=== PATIENT | female | born 1955 | race Caucasian/White ===

== ENCOUNTER → 2017-01-29 | Outpatient (CLI) | payer OTHER ==
[~2017-01-29] MED LIST: AEROSOL THERAPY1 DEV IH; ALBUTEROL2.5 MG/NEB INH; AUGMENTIN1 TA2 PO; AVPAK AZITHROM250 MG PO; DUEXIS 26.6 MG-1 TAB PO; FLONASE 50 MCG16 GM; HUMIRA10 MG/0.2 SC; HYDROCODONE-APA1 TA1 PO; KEFLEX 500MG.500 MG PO; LEVOTHYROXINE0.05 MG PO; LEXAPRO 10 MG T10 MG PO; LEXAPRO 20 MG T20 MG PO; MEDROL 4MG. DOSE4 MG PO; METAMUCIL3.4 GM/DOS PO; MIRALAX(PO17 GM/1 PA PO; MULTI VITAMINS1 TA1 PO; NOMEDS; PREDNISONE 10MG10 MG PO; PROBIOTICA100 MILLIO PO; SINGULAIR 10 MG10 MG PO; [UNRECOGNIZED DRUG - OTHER] SL
[2017-01-29 15:37] LABS: HEMOGLOBIN 12.5 g/dL (12.2-16.2); LYMPH # 1.4 K/mm3 (0.7-4.5); LYMPH % 28.1 % (10-50.0)
[2017-01-29 17:38] LABS: BUN 20 mg/dL (7-18)
[2017-01-29 17:39] LABS: GFR (ESTIMATED) 85 ML/MIN (59-)
[2017-01-31 12:36] LABS: HBsAg Screen Negative (Negative); Hep B Core Ab, IgM Negative (Negative); Hep B Core Ab, Tot Negative (Negative); Hep B Surface Ab, Qual Non Reactive (.)
== END ==
LOC: LAB 15:09
PROVIDERS: Nurse Practitioner Acute Care
DX: L40.50 Arthropathic psoriasis, unspecified (principal); Z51.81 Encounter for therapeutic drug level monitoring; Z79.1 Long term (current) use of non-steroidal anti-inflammatories (NSAID)

== ENCOUNTER → 2017-01-30 | Outpatient (CLI) | payer OTHER ==
--- NOTE | 2017-02-01 13:14 | RADIOLOGY REPORT PS360 ---
MRI-ABD W/WO HISTORY: HEPATIC DISEASE follow-up right lobe liver lesion. Bloating. Constipation. Diarrhea previous bowel obstruction. Patient Age: 61 years: Female Ordering Physician: KIKA BONDS TECHNIQUE: Multiplanar multisequence imaging abdomen pre and postcontrast. Sequential postcontrast images arterial, venous and delayed ProHance 13 mild COMPARISON :Previous MRI abdomen May 2015, March [address] abdomen 03/09/2015 and ultrasound right upper quadrant 03/10/2015. FINDINGS The multiple prior studies are very helpful in this somewhat unusual feature at liver. There is decreased size of the prior area increased enhancement. This now very thin rather linear wedge-shaped area extending to the periphery of the right lobe of the liver.. Previously enhancement a more extensive distribution with prominent fanlike area of enhancement.-This now quite thin but with focal persistent generous early arterial enhancement which diminishes on subsequent images. . I favor & suspect 'Transient Hepatic Intensity Difference Lesion'. 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 Since 2014 this area has shown shown further regression of size withretraction & likely scarring here since prior 2014 studies.. Previously the area of enhancement span up to 5 cm AP and now spans ~ 1.9 cm AP but with slightly more pronounced linear enhancement.(Most importantly regression of findings here speak against any underlying mass or significant neoplasm On today's study there is linear enhancement signal extends just anterior to the right hepatic vein here at the superior posterior aspect liver. The latter draining hepatic vein remains normal size but I would note minimal low signal within this vein as it junctions with IVC.-Most likely flow void artifact doubt, significant hepatic vein filling defect or abnormality-more likely laminar flow void . Spleen normal size. Pancreas unremarkable. Gallbladder remains with common duct seem normal diameter. Prominent, increased stool is seen throughout the visualize large bowel to be no prominent stool the transverse colon and proximal descending colon on this abdomen study only study. No retroperitoneal adenopathy. IMPRESSION 1. The previous wedgelike area of early arterial enhancement extending to the periphery the right lobe of liver has decreased in overall size. Appears to be some progressive retraction and scarring in this area. Certainly no evidence of mass effect or mass lesion. However although this area smaller there is still generous early arterial enhancement of this region. Note comments in text. ...I would speculate that this reflects a 'Transient Hepatic Intensity Difference ' Type Lesion. Suspect there may have been a previous branch of the portal vein which was injured or thrombosed, resulting in this increased hepatic arterial flow to this region accounting for this early enhancement pattern. Other minor associated findings in text (Most importantly regression of findings here speak against any underlying mass or significant neoplasm.) 2. Gallbladder remains. No ductal dilatation. Pancreas unremarkable. 3. Large amount of stool are reflecting constipation is seen at the visualized portions of the large bowel
== END ==
LOC: RAD 08:39
DX: K76.9 Liver disease, unspecified (principal)
CPT/HCPCS: A9576

== ENCOUNTER → 2017-03-13 | Outpatient (CLI) | payer OTHER ==
[~2017-03-13] MED LIST changes: +AUGMENTIN1 TA1 PO
--- NOTE | 2017-03-15 17:14 | RADIOLOGY REPORT PS360 ---
DIG MAMM-SCREEN ALISHA W/CAD Ordering Physician: Kiki Arce APRN Patient Age: 61 years Female COMPARISON: November 2013, November 2015 INDICATION: Routine screening 61-year-old. No hormones no new complaints TECHNIQUE: MLO and cc view both breast with CAD review FINDINGS: Lower density breast with minimal fibroglandular elements. No significant change. No dominant mass. No suspicious calcifications. Right breast again stable small area of density upper-outer quadrant stable since 2014 Left breast. Minor wispy density at the superior left breast MLO view appears stable and appears to dissipate on cc view compatible with fibroglandular elements. CAD review highlights no areas of concern either IMPRESSION: Stable bilateral mammogram no new areas concern Low-density breast. Follow-up in one year recommended BI-RADS CATEGORY: 1_Negative RECOMMENDED FOLLOWUP: 12M 12 MONTH FOLLOW-UP (A letter has been sent to the patient regarding results of the study.)
== END ==
LOC: RAD 03-09 11:00
DX: Z12.31 Encounter for screening mammogram for malignant neoplasm of breast (principal)
CPT/HCPCS: G0202

== ENCOUNTER → 2017-03-21 | Outpatient (CLI) | payer OTHER ==
[2017-03-21 18:04] LABS: HEMOGLOBIN 12.3 g/dL (12.2-16.2); LYMPH # 1.7 K/mm3 (0.7-4.5); LYMPH % 26.6 % (10-50.0)
[2017-03-21 18:37] LABS: BUN 20 mg/dL (7-18)
[2017-03-21 18:42] LABS: GFR (ESTIMATED) 73 ML/MIN (59-)
== END ==
LOC: LAB 16:35
PROVIDERS: Internal Medicine
DX: L40.50 Arthropathic psoriasis, unspecified (principal); Z51.81 Encounter for therapeutic drug level monitoring; Z79.1 Long term (current) use of non-steroidal anti-inflammatories (NSAID)

== ENCOUNTER 2017-03-23 13:05 | Emergency (ER) | payer OTHER ==
[~2017-03-23] VITALS: Ht 170.2 cm; Wt 105.2 kg
--- NOTE | 2017-03-23 14:21 | Urgent Treatment Center Report ---
History of Present Issue Date/Time Seen by Provider 03/23/17 1405 Visit Reason Pt arrived:Walked Presenting Problem:PT RECEIVED DOG BITE TO LT HAND AT 1000 Location if Accident: Onset of symptoms date/time:/ or onset unknown for:MEDICAL HX UNKNOWN Have you (or family members/close friends) recently traveled outside the [place]? N If Yes, where/when: Have you had exposure to infectious disease within the past month? TB? Other? Specify: Patient state that her dog has a sore ear and as she was putting on the leash she accidently bumped the ear and the dog turned and bite her causing small laceration on the top of her left hand. States that dog is up to date on his shots and she came in after talking to family doctor and they told her she needed antibiotics and tetnus shot ALLERGIES Coded Allergies: No Known Allergies (03/23/17) Home Medications Active Scripts CEPHALEXIN (Keflex 500MG Capsule) 500 MG PO BID 10 Days Prov: 11/23/16 NEBULIZER (Compact Compressor Nebulizer) 1 UNIT IH ONCE #1 DEV Prov: 07/07/15 ALBUTEROL (Albuterol 0.083% Neb) 2.5 MG INH QID PRN dyspnea #120 NEB Prov: 07/07/15 Montelukast Sodium (Singulair 10MG) 10 MG PO DAILY #30 TAB Prov: 07/07/15 Fluticasone Propionate (Flonase 50 Mcg Nasal [place]) 2 SPRAY NA DAILY #1 BOT Prov: 11/15/16 Reported Medications POLYETHYLENE GLYCOL (Miralax) 17 GM PO DAILY Escitalopram Oxalate (Lexapro 20MG) 20 MG PO DAILY Adalimumab (Humira) 10 MG SC [id number] IBUPROFEN/FAMOTIDINE (Duexis 800-26.6 MG Tablet) 1 TAB PO TID Levothyroxine Sodium (Levothyroxine) (Unknown Dose) PO DAILY History Medical History General CAD? No Angina: No OK: No Hypertension? Yes Hyperlipidemia? No CHF? No DVT? No PE? No COPD? No Asthma? No Anemia? No GERD? Yes Gastric ulcers? No GI Bleed? No Hernia? No Thyroid Problems? Yes Hypothyroidism? Yes CVA? No Seizures? No Diabetes? No Renal Insuffiency? No UTI? No Stones? No BPH? No GB Disease: No Nephritic Syndrome? No Asplenia? No Hepatitis? No Sickle Cell Disease? No Arthritis? Yes Migraines? No Cataracts? No Glaucoma? No MRSA? No HIV? No TB? No Anxiety? No Depression? No Cancer? No Site: N More? Yes Additional hx: C Immunization HX DT/Tetanus 1-4 YRS Flu 2013-FSN Pneumonia Refuses Surgical Hx Previous Surgery?Y C SECTIONX3 HYSTERECTOMY BOWEL RESECTION Family History Family HX Diabetes No CAD Yes Hypertension Yes Hyperlipidemia Yes Cancer Yes TB No Social History Smoking Hx Smoker: Never Smoker Tobacco: No Packs/day N/A Alcohol Alcohol: No Review of Systems All Other Systems Reviewed and Negative Comment Dog bit left hand Physical Exam Vital Signs Vital Signs Date Time Temp Pulse Resp B/P Pulse O2 O2 Flow FiO2 Ox Delivery Rate 03/23 1354 98.1 84 20 146/76 97 General Appearance normal appearance, no apparent distress Respiratory Status Yes: trachea midline, chest symmetrical, non tender chest. No: respiratory distress. Cardiovascular normal exam, regular rate/rhythm Extremities Small laceration on top of left hand Neurologic alert, normal exam, oriented x 3 Medical Decision Making LABS/Meds/Orders Pt receiving controlled substance in ED? No Results/Orders Current Medication Orders Sig/Simona Start time Last Medication Dose Route Stop Time Status Admin Tetanus/Diphtheria 0.5 ML ONCE ONE 03/23 141 DC Toxoids Adsorbed IM 03/23 141 Progress UTC Progress Notes Comment Wound area cleaned with betadine and hybacleanse Steri strip placed over wound. Wound area approximately 2 cm long edges approxiamated well with steri strips Procedures Laceration/Wound Repair Laceration/Wound Repair Risks/benefits discussed with pt/guardian? Yes Tetanus status not up to date Wound Location hand Wound Length (cm) 2 Wound's Depth, Shape superficial Wound Explored Cleaned well with betadine, hybacleanse and saline Risk of retained FB explained to pt/guardian? No Irrigated w/ Saline (ccs) 20 Wound Prep Betadine, Hibiclens, Saline Wound Debrided none Wound Repaired With Steri-strips Sterile Dressing Applied No Departure Departure Time of Disposition 1414 Disposition DC Home or Self Care(routine) Clinical Impression Primary Impression: Dog bite Qualifiers: Encounter type: initial encounter Qualified Code: W54.0XXA - Bitten by dog, initial encounter Condition STABLE Referrals Emir RILEY,Salty (Family): 3 Days-Call Office if any signs of infection Patient Instructions DI for Dog Bite Additional Instructions Keep area clean and dry Take medication as prescribed FOllow up with family doctor if any signs of infection Return if needed Discharge Counseling Counseled pt/family regarding diagnosis, medications/RX, home care, follow up needs Prescriptions Current Visit Scripts AMOXICILLIN/POTASSIUM CLAV (Augmentin 500-125 Tablet) 1 TAB PO BID #14 TAB at 1421
[2017-03-23 14:28] VITALS: BP 146/76
--- OUTSIDE RECORDS SUMMARY | 2017-03-30 04:54 | External Medical Summary Rpt | CCD ---
Demographics Preferred Language Italian Marital Status Unknown Adventism Affiliation Unknown Race Unknown Ethnic Group Unknown Author Author , PAMELA MILES Address Unknown Phone Immunization No patient found.
--- OUTSIDE RECORDS SUMMARY | 2017-03-30 04:54 | External Medical Summary Rpt ---
Author Author KIERAEMETERIO Kelley, [employer] Address Unknown Phone Unavailable Results Comprehensive metabolic 2000 panel in Serum or Plasma Observa Value Referen Units Interpr Notes Date tion ce etation Range Albumin/G 1.1 - 1.8 No Normal No Mar 21 lobulin informati informati 2016 4:35 [Mass on in on in PM ratio] in source source Serum or data data Plasma Albumin 3.4 - 5.0 gm/dL Normal No Mar 21 [Mass/vol informati 2016 4:35 ume] in on in PM Serum or source Plasma data Alkaline 46 - 116 U/L Normal No Mar 21 phosphata informati 2017 4:35 se on in PM [Enzymati source c data activity/ volume] in Serum or Plasma Bilirubin 0.2 - 1.0 mg/dL Normal No Mar 21 .total informati 2016 4:35 [Mass/vol on in PM ume] in source Serum or data Plasma Urea 7 - 18 mg/dL High No Mar 21 nitrogen informati 2016 4:35 [Mass/vol on in PM ume] in source Serum or data Plasma Calcium 8.5 - mg/dL Normal No Mar 21 [Mass/vol 10.1 informati 2017 4:35 ume] in on in PM Serum or source Plasma data Chloride 98 - 107 mmoL/L Normal No Mar 21 [Moles/vo informati 2016 4:35 lume] in on in PM Serum or source Plasma data Carbon 21.0 - mmoL/L Normal No Mar 4 dioxide, 32.0 informati 2017 4:35 total on in PM [Moles/vo source lume] in data Serum or Plasma Creatinin 0.55 - mg/dL Normal No Mar 4 e 1.02 informati 2017 4:35 [Mass/vol on in PM ume] in source Serum or data Plasma Estimated 59- ML/MIN No REFERENCE Oct 4 informati RANGE: 2017 4:35 glomerula on in >60 PM r source ML/MIN/1. filtratio data 73 SQUARE n rate METERSIf (GF this patient is -A merican, then multiply theresult by 1.210. Globulin 1.3 - 3.2 gm/dL Normal No Mar 21 [Mass/vol informati 2016 4:35 ume] in on in PM Serum source data Glucose 74 - 106 mg/dL Normal No Mar 21 [Mass/vol informati 2016 4:35 ume] in on in PM Serum or source Plasma data Potassium 3.5 - 5.1 mmoL/L Normal No Mar 212016 4:35 [Moles/vo on in PM lume] in source Serum or data Plasma Sodium 136 - 145 mmoL/L Normal No Mar 21 [Moles/vo informati 2016 4:35 lume] in on in PM Serum or source Plasma data Aspartate 15 - 37 U/L Normal No Mar 21 inform2016 4:35 aminotran on in PM sferase source [Enzymati data c activity/ volume] in Serum or Plasma Alanine 12 - 78 U/L Normal No Mar 21 aminotran 2016 4:35 sferase on in PM [Enzymati source c data activity/ volume] in Serum or Plasma Protein 6.4 - 8.2 gm/dL Normal No Mar 21 [Mass/vol informati 2016 4:35 ume] in on in PM Serum or source Plasma data CBC W Auto Differential panel in Blood Observa Value Referen Units Interpr Notes Date tion ce etation Range Basophils 0 - 0.2 K/MM3 Normal No Mar 212016 4:35 [#/volume on in PM ] in source Blood by data Automated count Basophils 0.1 - 2.0 % Normal No Mar 21 inform2016 4:35 leukocyte on in PM s in source Blood by data Automated count Eosinophi 0.0 - 0.4 K/mm3 Normal No Mar 21 ls 2016 4:35 [#/volume on in PM ] in source Blood by data Automated count Eosinophi 0.1 - % Normal No Mar 21 ls/100 12.0 informati 2016 4:35 leukocyte on in PM s in source Blood by data Automated count Granulocy 1.8 - 7.8 K/mm3 Normal No Mar 21 gopi 2016 4:35 [#/volume on in PM ] in source Blood by data Automated count Granulocy 37.0 - % Normal No Mar 21 gopi100 80.0 inform2016 4:35 leukocyte on in PM s in source Blood by data Automated count Hematocri 37.0 - % Normal No Mar 21 t [Volume 47.0 informati 2017 4:35 on in PM Fraction] source of Blood data Hemoglobi 12.2 - g/dL Normal No Mar 21 n 16.2 informati 2017 4:35 [Mass/vol on in PM ume] in source Blood data Lymphocyt 0.7 - 4.5 K/mm3 Normal No Mar 21 es informati 2016 4:35 [#/volume on in PM ] in source Unspecifi data ed specimen by Automated count Lymphocyt 10 - 50.0 % Normal No Mar 21 es informati 2017 4:35 [#/volume on in PM ] in source Unspecifi data ed specimen by Automated count Erythrocy 27 - 31.2 pg Normal No Mar 21 te mean informati 2017 4:35 corpuscul on in PM ar source hemoglobi data n [Entitic mass] Erythrocy 31.8 - g/dl Low No Mar 21 te mean 35.4 informati 2017 4:35 corpuscul on in PM ar source hemoglobi data n concentra tion [Mass/vol ume] by Automated count Erythrocy 82.2 - fl Normal No Mar 21 te mean 97.8 informati 2017 4:35 corpuscul on in PM ar volume source [Entitic data volume] by Automated count Monocytes 0.1 - 1.0 K/mm3 Normal No Mar 21 informati 2017 4:35 [#/volume on in PM ] in source Blood by data Automated count Monocytes 1.7 - 9.3 % Normal No Oct 4 /100 informati 2017 4:35 leukocyte on in PM s in source Blood by data Automated count Platelet 7.4 - fl Normal No Mar 21 mean 10.4 informati 2017 4:35 volume on in PM [Entitic source volume] data in Blood by Automated count Platelets 142 - 424 K/mm3 Normal No Mar 4 informati 2017 4:35 [#/volume on in PM ] in source Blood data Erythrocy 4.2 - 5.4 M/mm3 Low No Mar 4 gopi informati 2017 4:35 [#/volume on in PM ] in source Amniotic data fluid Erythrocy 11.5 - % Normal No Mar 21 te 17.5 informati 2017 4:35 distribut on in PM ion width source [Entitic data volume] by Automated count Leukocyte 4.8 - K/MM3 Normal No Mar 4 s 10.8 informati 2017 4:35 [#/volume on in PM ] in source Blood data Comprehensive metabolic 2000 panel in Serum or Plasma Observa Value Referen Units Interpr Notes Date tion ce etation Range Albumin/G 1.1 - 1.8 No Normal No Feb 13 lobulin informati informati 2016 [Mass on in on in 12:02 PM ratio] in source source Serum or data data Plasma Albumin 3.4 - 5.0 gm/dL Normal No Feb 13 [Mass/vol informati 2016 ume] in on in 12:02 PM Serum or source Plasma data Alkaline 46 - 116 U/L Normal No Feb 13 phosphata informati 2016 se on in 12:02 PM [Enzymati source c data activity/ volume] in Serum or Plasma Bilirubin 0.2 - 1.0 mg/dL Normal No Feb 13 .total informati 2016 [Mass/vol on in 12:02 PM ume] in source Serum or data Plasma Urea 7 - 18 mg/dL High No Feb 13 nitrogen informati 2016 [Mass/vol on in 12:02 PM ume] in source Serum or data Plasma Calcium 8.5 - mg/dL Normal No Feb 13 [Mass/vol 10.1 informati 2016 ume] in on in 12:02 PM Serum or source Plasma data Chloride 98 - 107 mmoL/L Normal No Feb 13 [Moles/vo informati 2016 lume] in on in 12:02 PM Serum or source Plasma data Carbon 21.0 - mmoL/L Normal No Feb 13 dioxide, 32.0 informati 2016 total on in 12:02 PM [Moles/vo source lume] in data Serum or Plasma Creatinin 0.55 - mg/dL Normal No Feb 13 e 1.02 informati 2016 [Mass/vol on in 12:02 PM ume] in source Serum or data Plasma Estimated 59- ML/MIN No REFERENCE Feb 13 informati RANGE: 2017 glomerula on in >60 12:02 PM r source ML/MIN/1. filtratio data 73 SQUARE n rate METERSIf (GF this patient is -A merican, then multiply theresult by 1.210. Globulin 1.3 - 3.2 gm/dL Normal No Feb 13 [Mass/vol informati 2017 ume] in on in 12:02 PM Serum source data Glucose 74 - 106 mg/dL Normal No Feb 13 [Mass/vol informati 2016 ume] in on in 12:02 PM Serum or source Plasma data Potassium 3.5 - 5.1 mmoL/L Normal No Feb 132016 [Moles/vo on in 12:02 PM lume] in source Serum or data Plasma Sodium 136 - 145 mmoL/L Normal No Feb 13 [Moles/vo informati 2016 lume] in on in 12:02 PM Serum or source Plasma data Aspartate 15 - 37 U/L Normal No Feb 132016 aminotran on in 12:02 PM sferase source [Enzymati data c activity/ volume] in Serum or Plasma Alanine 12 - 78 U/L Normal No Feb 13 aminotran inform2016 sferase on in 12:02 PM [Enzymati source c data activity/ volume] in Serum or Plasma Protein 6.4 - 8.2 gm/dL Normal No Feb 13 [Mass/vol informati 2016 ume] in on in 12:02 PM Serum or source Plasma data CBC W Auto Differential panel in Blood Observa Value Referen Units Interpr Notes Date tion ce etation Range Basophils 0 - 0.2 K/MM3 Normal No Feb 132016 [#/volume on in 12:02 PM ] in source Blood by data Automated count Basophils 0.1 - 2.0 % Normal No Feb 13 /2016 leukocyte on in 12:02 PM s in source Blood by data Automated count Eosinophi 0.0 - 0.4 K/mm3 Normal No Feb 13 ls 2016 [#/volume on in 12:02 PM ] in source Blood by data Automated count Eosinophi 0.1 - % Normal No Feb 13 ls/100 12.0 2016 leukocyte on in 12:02 PM s in source Blood by data Automated count Granulocy 1.8 - 7.8 K/mm3 Normal No Feb 13 gopi 2016 [#/volume on in 12:02 PM ] in source Blood by data Automated count Granulocy 37.0 - % Normal No Feb 13 gopi/100 80.0 2016 leukocyte on in 12:02 PM s in source Blood by data Automated count Hematocri 37.0 - % Normal No Feb 13 t [Volume 47.0 ati 2016 on in 12:02 PM Fraction] source of Blood data Hemoglobi 12.2 - g/dL Normal No Feb 13 n 16.2 2016 [Mass/vol on in 12:02 PM ume] in source Blood data Lymphocyt 0.7 - 4.5 K/mm3 Normal No Feb 13 es 2016 [#/volume on in 12:02 PM ] in source Unspecifi data ed specimen by Automated count Lymphocyt 10 - 50.0 % Normal No Feb 13 es 2016 [#/volume on in 12:02 PM ] in source Unspecifi data ed specimen by Automated count Erythrocy 27 - 31.2 pg Normal No Feb 13 te mean 2016 corpuscul on in 12:02 PM ar source hemoglobi data n [Entitic mass] Erythrocy 31.8 - g/dl Normal No Feb 13 te mean 35.4 2016 corpuscul on in 12:02 PM ar source hemoglobi data n concentra tion [Mass/vol ume] by Automated count Erythrocy 82.2 - fl Normal No Feb 13 te mean 97.8 2016 corpuscul on in 12:02 PM ar volume source [Entitic data volume] by Automated count Monocytes 0.1 - 1.0 K/mm3 Normal No Feb 132016 [#/volume on in 12:02 PM ] in source Blood by data Automated count Monocytes 1.7 - 9.3 % Normal No Feb 13 /100 2016 leukocyte on in 12:02 PM s in source Blood by data Automated count Platelet 7.4 - fl Normal No Feb 13 mean 10.4 2016 volume on in 12:02 PM [Entitic source volume] data in Blood by Automated count Platelets 142 - 424 K/mm3 Normal No Feb 132016 [#/volume on in 12:02 PM ] in source Blood data Erythrocy 4.2 - 5.4 M/mm3 Low No Feb 13 gopi 2016 [#/volume on in 12:02 PM ] in source Amniotic data fluid Erythrocy 11.5 - % Normal No Feb 13 te 17.5 2016 distribut on in 12:02 PM ion width source [Entitic data volume] by Automated count Leukocyte 4.8 - K/MM3 Normal No Feb 13 s 10.8 2016 [#/volume on in 12:02 PM ] in source Blood data Thyrotropin [Units/volume] in Serum or Plasma Observa Value Referen Units Interpr Notes Date tion ce etation Range Thyrotrop 0.358 - uIU/ml Normal No Jan 29 in 3.740 informati 2016 3:14 [Units/vo on in PM lume] in source Serum or data Plasma Lpzim-[id number].tumor marker [Mass/volume] in Serum or Plasma Observa Value Referen Units Interpr Notes Date tion ce etation Range Alpha-1-f 0.0 - 8.3 ng/mL No Cj Jan 29 etoprotei informati ECLIA 2017 3:11 n.tumor on in methodolo PM marker source gyPerform [Mass/vol data ed at: ume] in CB - Serum or [facility] Plasma [id number] [place], [place] [id number] [employer]: Sandro Hill PhD, Phone: [phone] Hepatitis B virus core Ab [Presence] in Serum by Immunoassay Observa Value Referen Units Interpr Notes Date tion ce etation Range Hepatit Negativ Negativ No No No Jan 29 is B e e informa informa informa 2017 virus tion in tion in tion in 3:11 PM core Ab source source source data data data [Presen ce] in Serum by Immunoa ssay Hepatitis B virus core IgM Ab [Presence] in Serum by Immunoassay Observa Value Referen Units Interpr Notes Date tion ce etation Range Hepatit Negativ Negativ No No Perform Jan 29 is B e e informa informa ed at: 2017 virus tion in tion in CB - 3:11 PM core source source [facility] IgM Ab data data [Presen [place] ce] in 370 Serum [facility] [id number] Directo r: Sandro cosme PhD, Phone: [phone] Hepatitis B virus surface Ab [Presence] in Serum Observa Value Referen Units Interpr Notes Date tion ce etation Range Hepatit Non . No No Non Jan 29 is B Reactiv informa informa Reactiv 2017 virus e tion in tion in e: 3:11 PM surface source source Inconsi Ab data data stent [Presen with ce] in immunit Serum y,less than 10 mIU/mLR eactive : Consist ent with immunit y,great er than 9.9 mIU/mL HBsAg Screen Observa Value Referen Units Interpr Notes Date tion ce etation Range Hepatit Negativ Negativ No No No Jan 29 is B e e informa informa informa 2017 virus tion in tion in tion in 3:11 PM surface source source source Ag data data data [Presen ce] in Serum by Immunoa ssay Comprehensive metabolic 2000 panel in Serum or Plasma Observa Value Referen Units Interpr Notes Date tion ce etation Range Albumin/G 1.1 - 1.8 No Normal No Jan 29 lobulin informati informati 2016 3:11 [Mass on in on in PM ratio] in source source Serum or data data Plasma Albumin 3.4 - 5.0 gm/dL Normal No Jan 29 [Mass/vol informati 2016 3:11 ume] in on in PM Serum or source Plasma data Alkaline 46 - 116 U/L Normal No Jan 29 phosphata informati 2016 3:11 se on in PM [Enzymati source c data activity/ volume] in Serum or Plasma Bilirubin 0.2 - 1.0 mg/dL Normal No Jan 29 .total informati 2016 3:11 [Mass/vol on in PM ume] in source Serum or data Plasma Urea 7 - 18 mg/dL High No Jan 29 nitrogen informati 2016 3:11 [Mass/vol on in PM ume] in source Serum or data Plasma Calcium 8.5 - mg/dL Low No Jan 29 [Mass/vol 10.1 informati 2016 3:11 ume] in on in PM Serum or source Plasma data Chloride 98 - 107 mmoL/L Normal No Jan 29 [Moles/vo informati 2016 3:11 lume] in on in PM Serum or source Plasma data Carbon 21.0 - mmoL/L Normal No Jan 29 dioxide, 32.0 informati 2016 3:11 total on in PM [Moles/vo source lume] in data Serum or Plasma Creatinin 0.55 - mg/dL Normal No Jan 29 e 1.02 informati 2016 3:11 [Mass/vol on in PM ume] in source Serum or data Plasma Estimated 59- ML/MIN No REFERENCE Jan 29 informati RANGE: 2017 3:11 glomerula on in >60 PM r source ML/MIN/1. filtratio data 73 SQUARE n rate METERSIf (GF this patient is -A merican, then multiply theresult by 1.210. Globulin 1.3 - 3.2 gm/dL Normal No Jan 29 [Mass/vol informati 2016 3:11 ume] in on in PM Serum source data Glucose 74 - 106 mg/dL High No Jan 29 [Mass/vol informati 2016 3:11 ume] in on in PM Serum or source Plasma data Potassium 3.5 - 5.1 mmoL/L Normal No Jan 292016 3:11 [Moles/vo on in PM lume] in source Serum or data Plasma Sodium 136 - 145 mmoL/L Normal No Jan 29 [Moles/vo 2016 3:11 lume] in on in PM Serum or source Plasma data Aspartate 15 - 37 U/L Normal No Jan 29 informati 2016 3:11 aminotran on in PM sferase source [Enzymati data c activity/ volume] in Serum or Plasma Alanine 12 - 78 U/L Normal No Jan 29 aminotran 2016 3:11 sferase on in PM [Enzymati source c data activity/ volume] in Serum or Plasma Protein 6.4 - 8.2 gm/dL Normal No Jan 29 [Mass/vol informati 2016 3:11 ume] in on in PM Serum or source Plasma data INR in Blood by Coagulation assay Observa Value Referen Units Interpr Notes Date tion ce etation Range INR in 0.9 - 1.1 No Normal INDICATIO Jan 29 Blood by informati N 2016 3:11 Coagulati on in PM on assay source INR data RANGETHER APY FOR DVT, PE, ATRIAL FIB; 2.0 - 3.0PROPHY LAXIS FOR VTETHERAP Y FOR MECHANICA L HEART 2.5 - 3.5VALVE; PREVENTIO N OF SYSTEMICE MBOLISM SECONDARY TO AMI Prothromb 9.4 - SECONDS Normal No Jan 29 in time 11.8 2016 3:11 (PT) in on in PM Platelet source poor data plasma by Coagulati on assay CBC W Auto Differential panel in Blood Observa Value Referen Units Interpr Notes Date tion ce etation Range Basophils 0 - 0.2 K/MM3 Normal No Jan 29 inform2016 3:11 [#/volume on in PM ] in source Blood by data Automated count Basophils 0.1 - 2.0 % Normal No Jan 29 /100 informati 2016 3:11 leukocyte on in PM s in source Blood by data Automated count Eosinophi 0.0 - 0.4 K/mm3 Normal No Aug 14 ls informati 2016 3:11 [#/volume on in PM ] in source Blood by data Automated count Eosinophi 0.1 - % Normal No Jan 14 ls/100 12.0 informati 2016 3:11 leukocyte on in PM s in source Blood by data Automated count Granulocy 1.8 - 7.8 K/mm3 Normal No Jan 14 gopi informati 2016 3:11 [#/volume on in PM ] in source Blood by data Automated count Granulocy 37.0 - % Normal No Jan 14 gopi/100 80.0 informati 2016 3:11 leukocyte on in PM s in source Blood by data Automated count Hematocri 37.0 - % Normal No Jan 29 t [Volume 47.0 informati 2016 3:11 on in PM Fraction] source of Blood data Hemoglobi 12.2 - g/dL Normal No Jan 29 n 16.2 informati 2016 3:11 [Mass/vol on in PM ume] in source Blood data Lymphocyt 0.7 - 4.5 K/mm3 Normal No Jan 29 es informati 2016 3:11 [#/volume on in PM ] in source Unspecifi data ed specimen by Automated count Lymphocyt 10 - 50.0 % Normal No Jan 29 es informati 2016 3:11 [#/volume on in PM ] in source Unspecifi data ed specimen by Automated count Erythrocy 27 - 31.2 pg High No Jan 29 te mean informati 2016 3:11 corpuscul on in PM ar source hemoglobi data n [Entitic mass] Erythrocy 31.8 - g/dl Normal No Jan 29 te mean 35.4 informati 2016 3:11 corpuscul on in PM ar source hemoglobi data n concentra tion [Mass/vol ume] by Automated count Erythrocy 82.2 - fl Normal No Jan 29 te mean 97.8 informati 2016 3:11 corpuscul on in PM ar volume source [Entitic data volume] by Automated count Monocytes 0.1 - 1.0 K/mm3 Normal No Jan 14 informati 2016 3:11 [#/volume on in PM ] in source Blood by data Automated count Monocytes 1.7 - 9.3 % Normal No Jan 14 /100 informati 2016 3:11 leukocyte on in PM s in source Blood by data Automated count Platelet 7.4 - fl Normal No Jan 14 mean 10.4 informati 2017 3:11 volume on in PM [Entitic source volume] data in Blood by Automated count Platelets 142 - 424 K/mm3 Normal No Jan 14 informati 2017 3:11 [#/volume on in PM ] in source Blood data Erythrocy 4.2 - 5.4 M/mm3 Low No Jan 29 gopi informati 2016 3:11 [#/volume on in PM ] in source Amniotic data fluid Erythrocy 11.5 - % Normal No Jan 29 te 17.5 informati 2016 3:11 distribut on in PM ion width source [Entitic data volume] by Automated count Leukocyte 4.8 - K/MM3 Normal No Jan 29 s 10.8 informati 2017 3:11 [#/volume on in PM ] in source Blood data Comprehensive metabolic 2000 panel in Serum or Plasma Observa Value Referen Units Interpr Notes Date tion ce etation Range Albumin/G 1.1 - 1.8 No Normal No November 08 lobulin informati informati 2016 9:13 [Mass on in on in AM ratio] in source source Serum or data data Plasma Albumin 3.4 - 5.0 gm/dL Normal No November 08 [Mass/vol informati 2016 9:13 ume] in on in AM Serum or source Plasma data Alkaline 46 - 116 U/L Normal No November 08 phosphata informati 2016 9:13 se on in AM [Enzymati source c data activity/ volume] in Serum or Plasma Bilirubin 0.2 - 1.0 mg/dL Normal No November 08 .total informati 2016 9:13 [Mass/vol on in AM ume] in source Serum or data Plasma Urea 7 - 18 mg/dL High No November 08 nitrogen informati 2016 9:13 [Mass/vol on in AM ume] in source Serum or data Plasma Calcium 8.5 - mg/dL Normal No November 08 [Mass/vol 10.1 informati 2016 9:13 ume] in on in AM Serum or source Plasma data Chloride 98 - 107 mmoL/L High No November 08 [Moles/vo informati 2016 9:13 lume] in on in AM Serum or source Plasma data Carbon 21.0 - mmoL/L Normal No November 08 dioxide, 32.0 informati 2016 9:13 total on in AM [Moles/vo source lume] in data Serum or Plasma Creatinin 0.55 - mg/dL Normal No November 08 e 1.02 informati 2017 9:13 [Mass/vol on in AM ume] in source Serum or data Plasma Estimated 59- ML/MIN No REFERENCE November 08 informati RANGE: 2017 9:13 glomerula on in >60 AM r source ML/MIN/1. filtratio data 73 SQUARE n rate METERSIf (GF this patient is -A merican, then multiply theresult by 1.210. Globulin 1.3 - 3.2 gm/dL Normal No November 08 [Mass/vol informati 2016 9:13 ume] in on in AM Serum source data Glucose 74 - 106 mg/dL Normal No November 08 [Mass/vol informati 2016 9:13 ume] in on in AM Serum or source Plasma data Potassium 3.5 - 5.1 mmoL/L Normal No November 08 informati 2016 9:13 [Moles/vo on in AM lume] in source Serum or data Plasma Sodium 136 - 145 mmoL/L Normal No November 08 [Moles/vo informati 2016 9:13 lume] in on in AM Serum or source Plasma data Aspartate 15 - 37 U/L Low No November 08 informati 2016 9:13 aminotran on in AM sferase source [Enzymati data c activity/ volume] in Serum or Plasma Alanine 12 - 78 U/L Normal No November 08 aminotran informati 2016 9:13 sferase on in AM [Enzymati source c data activity/ volume] in Serum or Plasma Protein 6.4 - 8.2 gm/dL Normal No November 08 [Mass/vol informati 2016 9:13 ume] in on in AM Serum or source Plasma data Lipid 1996 panel in Serum or Plasma Observa Value Referen Units Interpr Notes Date tion ce etation Range Cholester < 200 mg/dL High No November 08 ol informati 2016 9:13 [Moles/vo on in AM lume] in source Unspecifi data ed specimen Cholester 40 - 60 MG/DL High No November 08 ol in HDL informati 2016 9:13 on in AM [Mass/vol source ume] in data Serum or Plasma Cholester 0 - 130 mg/dL Normal No November 08 ol in LDL informati 2016 9:13 on in AM [Mass/vol source ume] in data Serum or Plasma by deidre on Triglycer 30 - 200 mg/dL Normal No November 08 alejandro informati 2016 9:13 [Moles/vo on in AM lume] in source Serum or data Plasma Cholester 0 - 40 No Normal No November 08 ol in informati informati 2016 9:13 VLDL on in on in AM [Mass/vol source source ume] in data data Serum or Plasma Thyrotropin [Units/volume] in Serum or Plasma Observa Value Referen Units Interpr Notes Date tion ce etation Range Thyrotrop 0.358 - uIU/ml No No November 08 in 3.740 informati informati 2016 9:13 [Units/vo on in on in AM lume] in source source Serum or data data Plasma CBC W Auto Differential panel in Blood Observa Value Referen Units Interpr Notes Date tion ce etation Range Basophils 0 - 0.2 K/MM3 Normal No November 08 informati 2016 9:13 [#/volume on in AM ] in source Blood by data Automated count Basophils 0.1 - 2.0 % Normal No November 08 / informati 2017 9:13 leukocyte on in AM s in source Blood by data Automated count Eosinophi 0.0 - 0.4 K/mm3 Normal No November 08 ls informati 2016 9:13 [#/volume on in AM ] in source Blood by data Automated count Eosinophi 0.1 - % Normal No November 08 ls/100 12.0 informati 2016 9:13 leukocyte on in AM s in source Blood by data Automated count Granulocy 1.8 - 7.8 K/mm3 Normal No November 08 gopi informati 2016 9:13 [#/volume on in AM ] in source Blood by data Automated count Granulocy 37.0 - % Normal No November 08 gopi/100 80.0 informati 2016 9:13 leukocyte on in AM s in source Blood by data Automated count Hematocri 37.0 - % Normal No November 08 t [Volume 47.0 informati 2016 9:13 on in AM Fraction] source of Blood data Hemoglobi 12.2 - g/dL Normal No November 08 n 16.2 informati 2016 9:13 [Mass/vol on in AM ume] in source Blood data Lymphocyt 0.7 - 4.5 K/mm3 Normal No November 08 es informati 2016 9:13 [#/volume on in AM ] in source Unspecifi data ed specimen by Automated count Lymphocyt 10 - 50.0 % Normal No November 08 es informati 2016 9:13 [#/volume on in AM ] in source Unspecifi data ed specimen by Automated count Erythrocy 27 - 31.2 pg High No November 08 te mean informati 2016 9:13 corpuscul on in AM ar source hemoglobi data n [Entitic mass] Erythrocy 31.8 - g/dl Normal No November 08 te mean 35.4 informati 2016 9:13 corpuscul on in AM ar source hemoglobi data n concentra tion [Mass/vol ume] by Automated count Erythrocy 82.2 - fl Normal No November 08 te mean 97.8 informati 2016 9:13 corpuscul on in AM ar volume source [Entitic data volume] by Automated count Monocytes 0.1 - 1.0 K/mm3 Normal No November 08 informati 2016 9:13 [#/volume on in AM ] in source Blood by data Automated count Monocytes 1.7 - 9.3 % Normal No November 08 / informati 2017 9:13 leukocyte on in AM s in source Blood by data Automated count Platelet 7.4 - fl Low No November 08 mean 10.4 informati 2017 9:13 volume on in AM [Entitic source volume] data in Blood by Automated count Platelets 142 - 424 K/mm3 Normal No November 08 informati 2016 9:13 [#/volume on in AM ] in source Blood data Erythrocy 4.2 - 5.4 M/mm3 Low No November 08 gopi informati 2017 9:13 [#/volume on in AM ] in source Amniotic data fluid Erythrocy 11.5 - % Normal No November 08 te 17.5 informati 2016 9:13 distribut on in AM ion width source [Entitic data volume] by Automated count Leukocyte 4.8 - K/MM3 Low No November 08 s 10.8 informati 2016 9:13 [#/volume on in AM ] in source Blood data
--- OUTSIDE RECORDS SUMMARY | 2017-03-30 04:54 | External Medical Summary Rpt | CCD ---
Author Author , JD Organization JD Address Unknown Phone [email or web address] Purpose Continuity of Care Document - 11-08-2016 through 2016 Results Labs Lab Lab Date Result Refere Interp Status Commen Order Detail nces retati t Range on Hepatitis B virus core Ab [Presence] in Serum by Immunoassay (01-29-2017 15:11) Hepatit Negativ Negativ complet is B 017 e e ed virus 15:11 core Ab [Presen ce] in Serum by Immunoa ssay Hepatitis B virus core IgM Ab [Presence] in Serum by Immunoassay (01-29-2017 15:11) Hepatit Negativ Negativ complet is B 017 e e ed virus 15:11 core IgM Ab [Presen ce] in Serum by Immunoa ssay Hepatitis B virus surface Ab [Presence] in Serum (01-29-2017 15:11) Hepatit Non . complet is B 017 Reactiv ed virus 15:11 e surface Ab [Presen ce] in Serum
--- OUTSIDE RECORDS SUMMARY | 2017-03-30 04:54 | External Medical Summary Rpt | CCD ---
Author Author , JD Organization DJ Address Unknown Phone [email or web address] Purpose Continuity of Care Document - 11-08-2016 [...]
--- OUTSIDE RECORDS SUMMARY | 2017-03-30 04:54 | External Medical Summary Rpt ---
Author Author KIERAEMETERIO Kelley, JD [employer] Organization [employer] Address Unknown Phone Unavailable [...] lume] in source Serum or data Plasma Izttj-1-kjrbevwckic.tumor marker [Mass/volume] in Serum or Plasma Observa Value Referen Units Interpr Notes Date tion ce etation Range Alpha-1-f 0.0 - 8.3 ng/mL No Cj Jan 29 etoprotei informati ECLIA 2017 3:11 n.tumor on in methodolo PM marker source gyPerform [Mass/vol data ed at: ume] in CB - Serum or [facility] Plasma [id number] [place], [place] [id number] Decorative Engraver: Sandro Hill PhD, Phone: [phone] Hepatitis B virus core Ab [Presence] [...] data [Presen [place] ce] in 370 Serum [facility] [id number] Directo r: Sandro cosme PhD, Phone: [phone] Hepatitis B virus surface Ab [Presence] in [...]
--- OUTSIDE RECORDS SUMMARY | 2017-03-30 04:54 | External Medical Summary Rpt | CCD ---
Demographics Preferred Language Italian Marital Status Unknown Confucianism Affiliation Unknown Race Unknown Ethnic Group Unknown Author Author , PAMELA MILES Address Unknown Phone Immunization No patient found.
== END 2017-03-23 14:29 | disposition home or self-care (01) ==
LOC: UTC 13:05
DX: S61.452A Open bite of left hand, initial encounter (principal); W54.0XXA Bitten by dog, initial encounter; Y93.9 Activity, unspecified; Y92.009 Unspecified place in unspecified non-institutional (private) residence as the place of occurrence of the external cause; Z79.899 Other long term (current) drug therapy; I10 Essential (primary) hypertension; E03.9 Hypothyroidism, unspecified; Z23 Encounter for immunization